=== PATIENT | male | born 1960 | race Caucasian/White ===

== ENCOUNTER 2020-08-10 14:14 | Emergency (ER) | payer BC ==
[~2020-08-10] VITALS: Ht 170.2 cm; Wt 92.5 kg
[2020-08-10 15:26] LABS: RED BLOOD COUNT 4.95 M/UL (4.20-5.50); WHITE BLOOD COUNT 9.2 K/UL (4.5-11.0)
[2020-08-10 15:48] LABS: BUN/CREATININE RATIO 15 (0-10)
== END 2020-08-11 00:11 | disposition short-term general hospital (02) ==
LOC: ER1 14:14
PROVIDERS: Family Medicine
DX: I71.01 Dissection of thoracic aorta (principal); I10 Essential (primary) hypertension; R03.0 Elevated blood-pressure reading, without diagnosis of hypertension; R73.9 Hyperglycemia, unspecified; Z20.822 Contact with and (suspected) exposure to COVID-19; F17.200 Nicotine dependence, unspecified, uncomplicated
CPT/HCPCS: 0240U; 71045; 80053; 80307; 81001; 82550; 82553; 83690; 83874; 83880; 84484; 85025; 85379; 85610; 93005; 96374; 96375; 96376; 99285; J0360; J2270; J2405; J7030; Q9967

== ENCOUNTER → 2021-03-06 | Outpatient (CLI) | payer OTHER | LOC: RAD 11:46 | DX: M25.562 Pain in left knee (principal); M25.561 Pain in right knee; M25.511 Pain in right shoulder; M25.512 Pain in left shoulder; M19.012 Primary osteoarthritis, left shoulder; M19.011 Primary osteoarthritis, right shoulder | CPT/HCPCS: 73030; 73562 ==

== ENCOUNTER → 2021-07-15 | Outpatient (CLI) | payer OTHER ==
[2021-07-15 10:25] LABS: HEMOGLOBIN 14.9 gm/dl (14.0-17.5); RED BLOOD COUNT 4.81 M/UL (4.20-5.50); WHITE BLOOD COUNT 7.6 K/UL (4.5-11.0)
[2021-07-15 10:58] LABS: BUN/CREATININE RATIO 12 (0-10)
== END ==
LOC: LAB 09:43
PROVIDERS: Nurse Practitioner Family
DX: M25.571 Pain in right ankle and joints of right foot (principal); M25.511 Pain in right shoulder; E11.65 Type 2 diabetes mellitus with hyperglycemia
CPT/HCPCS: 36415; 73030; 73610; 80053; 80061; 81001; 82043; 83036; 84443; 85025